=== PATIENT | female | born 1990 | race Caucasian/White ===

== ENCOUNTER 2018-10-01 09:27 | Day surgery (SDC) | payer OTHER ==
[2018-10-01 09:59] VITALS: BP 128/86; TEMP 98.1; BMI 24.0
--- NOTE | 2018-10-01 10:27 | PDOC.LDHP ---
Labor and Delivery H&P Chief complaint: contractions HPI: Patient of Dr Villa CC: Contractions at 37 weeks 1 day Location: Triage Eval time: 1015 HPI: 28 yo with 2 prior SVDs here for vaginal pressure and possible CTX since this AM. No NV, no LOF, good FM, no recent trauma. Otherwise well. Review of Systems: Complete ROS completed and as per HPI Current gestational age (weeks): 37 (1 day) Due date: 10/21/18 Dating criteria: last menstrual period Grav: 3 Para: 2 OB History Details: x 2 Current complications: none Abnormal US findings: No Past Medical History: none Current medications: pre-srinath vitamins Previous surgical history: none Allergies/Adverse Reactions: Allergies Allergy/AdvReac Type Severity Reaction Status Date / Time No Known Allergies Allergy Verified 10/01/18 09:57 Social history: none - Physical Exam Vital signs reviewed and normal: yes (128/86, 110, 98.1, 100%) General: NAD Heart: RRR Lungs: CTAB Abdomen: gravid Extremeties: no edema FHT: category 1 [place] contractions every: irregular - Vaginal Exam cm dilated: 4 Effacement: 75% Station: -1 - Assessment Early labor, latent phase,m early term,,,GBS negative. was 3cm in office last check - Plan Plan: observation in L&D (We will recheck in 2 hours to determine disposition. As still in latent phase and early term, we will follow up in 2 hours with recheck. Admit if cervical change or if CTX increase, or BP becomes an issue.)
--- NOTE | 2018-10-01 13:02 | PDOC.EVN ---
Event Note - Event Note Event Note: jah pollard persistent 4cm, no LOF, no VB Strip reviewed...reactive OK for outpatient care
== END 2018-10-01 13:14 | disposition home or self-care (01) ==
LOC: L&D/OP 09:27
PROVIDERS: ATTEND Student in an Organized Health Care Education/Training Program
DX: O47.1 False labor at or after 37 completed weeks of gestation (principal); Z79.899 Other long term (current) drug therapy; Z3A.37 37 weeks gestation of pregnancy
CPT/HCPCS: 99283

== ENCOUNTER 2018-10-04 12:47 | Day surgery (SDC) | payer OTHER ==
[2018-10-04 13:19] VITALS: BP 120/78; TEMP 97.7; BMI 24.3
--- NOTE | 2018-10-04 13:40 | PDOC.EVN ---
Event Note - Event Note Event Note: OBGYN Faculty Location: L&D H&P Entry 10/04/18 Time: [address] Villa CC: Here for Contractions/Low Back Pain Last seen here 10/01/18 and was 4cm HPI: 28 yo with 2 prior SVDs, at 37 weeks 4 days, with LBP, possible contractions. Aware of Patient's arrival. Dr Acuña ( Resident) consulting sales executive with me and on the way to asssess as first MD responder. Report to follow.
--- NOTE | 2018-10-04 14:38 | PDOC.EVN ---
Event Note - Event Note Event Note: Pt seen and examined, for full H&P see Dr. Wood's report. Briefly, 28 yo @ 37.4 presenting for episodic low back pain, contractions and mucous discharge. Pt reports membranes stripped in office last and had some brown discharge yesterday that has since resolved. Contractions felt since earlier today becoming more frequent. Reports pos movement, denies LOF, continued vaginal discharge. Denies headache, scotoma, NVDC, epigastric/ ruq pain, cp, sob, increased edema. VSS and WNL. FHTs show baseline 150s mod variability pos accels and no decels, contractions q8 min. a/p: 1: early term IUP: obs in l&d, recheck cervix in one hour and dc to home if no change (of note no cervical change since last triage)
--- NOTE | 2018-10-04 15:16 | PDOC.EVN ---
Event Note - Event Note Event Note: L&D: Recheck 1 hour later with pateint comfortable and exam unchanged. OK with recheck in clinic as not changed from last time (10/01). L&D info given. No PIH or pain issues at this time, and no LOF.
== END 2018-10-04 15:45 | disposition home or self-care (01) ==
LOC: L&D/OP 12:47
PROVIDERS: ATTEND Student in an Organized Health Care Education/Training Program
DX: O47.1 False labor at or after 37 completed weeks of gestation (principal); Z3A.37 37 weeks gestation of pregnancy; Z79.899 Other long term (current) drug therapy
CPT/HCPCS: 99283

== ENCOUNTER 2018-10-17 01:05 | Inpatient (IN) | payer OTHER ==
[2018-10-17] MEDS ORDERED: Meperidine HCl/PF 25 MG/ML VIAL IM/IV PRN (01:32)
[2018-10-17] MEDS ORDERED: Ondansetron PF 4 MG/2 ML Vial IVP PRN ×2 (01:32→03:51)
[2018-10-17] MEDS ORDERED: Ibuprofen 800 MG TAB PO PRN (01:32)
[2018-10-17] MEDS ORDERED: Promethazine HCl 25 MG/ML VIAL IM PRN (01:32)
[2018-10-17] MEDS ORDERED: Butorphanol Tartrate 1 MG/ML VIAL SLOW IVP PRN (01:32)
[2018-10-17] MEDS ORDERED: Acetaminophen 500 MG TAB PO PRN (01:32)
[2018-10-17] MEDS ORDERED: HYDROcodone/Acetaminophen 5/325 mg Tablet PO PRN ×4 (01:32→03:51)
[2018-10-17] MEDS ORDERED: NS / Oxytocin 40 units/1000ml 1,000 ML IV PRN (01:32)
[2018-10-17] MEDS ORDERED: Lidocaine 1% (PF) 30 ML VIAL SC PRN (01:32)
--- NOTE | 2018-10-17 01:42 | PDOC.LDHP ---
Labor and Delivery H&P Chief complaint: contractions HPI: 28 yo WF c/o UCs since 9PM. Denies SROM or bleeding. Current gestational age (weeks): 39 Due date: 10/21/18 Dating criteria: last menstrual period Grav: 3 Para: 2 OB History Details: PNC with Dr. Villa w/o complications. Current complications: none Abnormal US findings: No Past Medical History: None Current medications: pre- vitamins, iron Previous surgical history: none Allergies/Adverse Reactions: Allergies Allergy/AdvReac Type Severity Reaction Status Date / Time No Known Allergies Allergy Verified 10/04/18 13:20 Social history: none - Physical Exam Vital signs reviewed and normal: yes General: breathing through contractions Heart: RRR Lungs: CTAB Abdomen: gravid Extremeties: trace edema FHT: variability present [place] contractions every: UCs q 2-3 mins. - Vaginal Exam cm dilated: 7 Effacement: 100% - OB Labs Blood type: unknown RH: unknown Antibody Screen: unknown HIV: unknown RPR: unknown HEPSAg: unknown 1 hour GCT: unknown - Assessment L&D Assessment: term patient in labor - Plan Plan: admit to L&D, informed consent obtained (Dr. Villa notified.)
[2018-10-17] MEDS ORDERED: Lactated Ringer's 1,000 ML IV SCH ×2 (01:45)
[2018-10-17 01:52] LABS: Hemoglobin 11.1 g/dL (12.0-16.0); Mean Corpuscular HGB CONC 33.6 g/dL (32.0-36.0); Mean Corpuscular Hemoglobin 30.2 pg (27.0-31.0); Mean Corpuscular Volume 89.8 fL (78.0-98.0); Mean Platelet Volume 7.4 fL (7.4-10.4); Platelet Count 221 thou/uL (130-400); RBC Distribution Width 12.1 % (11.5-14.5); Red Blood Cell (RBC) Count 3.67 mill/uL (4.20-5.40); White Blood Cell (WBC) Count 15.6 thou/uL (4.8-10.8)
[2018-10-17 01:55] VITALS: BMI 25.7
--- NOTE | 2018-10-17 02:36 | PDOC.EVN ---
Event Note - Event Note Event Note: Asked to AROM by Dr. Villa. AROM clear. SVE 8-9 cm/90/+1, vtx. FHTs stable. UCs q 2-[address] Villa has arrived. Expect .
[2018-10-17 02:44] LABS: HBSAg Index 0.32 S/CO (0-0.99); Hep B Surf Ag Non-Reactive S/CO (NonReactive)
--- NOTE | 2018-10-17 03:00 | PDOC.OPDEL ---
OB Operative/Delivery Note Delivery Dr/Surgeon: Daisy Assist: n/a Pre-Delivery Diagnosis: active labor Procedure/Post Delivery Dx: spontaneous vaginal delivery Weeks gestation: 39 Anesthesia: none - Findings A Sex: female - 1 min: 8 - 5 min: 9 - Additional Findings/Plan Placenta delivered: spontaneous Repaired Obstetrical Laceration: none Estimated blood loss: 15cc qbl Post delivery plan: routine recovery
[2018-10-17] MEDS ORDERED: diphenhydrAMINE 25 MG CAP PO PRN (03:51)
[2018-10-17] MEDS ORDERED: Lanolin Ointment 7 GM TUBE TOP PRN (03:51)
[2018-10-17] MEDS ORDERED: Preparation H Ointment 28 GM TUBE PR PRN (03:51)
[2018-10-17] MEDS ORDERED: Milk Of Magnesia 30 ML UDCUP PO PRN (03:51)
[2018-10-17] MEDS ORDERED: Benzocaine/Menthol 20-0.5% 60 ML CAN TOP PRN (03:51)
[2018-10-17] MEDS ORDERED: NS / Oxytocin 40 units/1000ml 1,000 ML IV SCH (03:51)
[2018-10-17] MEDS ORDERED: Bisacodyl 10 MG SUPP PR PRN (03:51)
[2018-10-17 04:11] LABS: Syphilis Antibody Nonreactive (Nonreactive); Syphilis Antibody Index 0.04 S/CO (<1.00 Non-Reactive)
[2018-10-17] MEDS: Ibuprofen 800 MG TAB PO SCH ×3 (05:41→21:17)
[2018-10-17] MEDS: Ferrous Sulfate 325 MG TAB PO SCH ×2 (07:51→16:19)
[2018-10-17] MEDS ORDERED: Adacel (T-DAP) 0.5 ML SYRINGE IM ONE (09:00)
[2018-10-17] MEDS: Prenatal Vitamin 1 TAB PO SCH (09:33)
[2018-10-17] MEDS: Docusate Calcium (SURFAK) 240 MG CAP PO SCH ×2 (09:34→21:17)
[2018-10-17] MEDS ORDERED: Sodium Chloride 0.9% 10 ML ONE (12:47)
--- NOTE | 2018-10-17 18:21 | PDOC.PP ---
Post Progress Note Post Day #: 0 PO intake tolerated: yes Flatus: yes Ambulation: yes Vital Signs (12 hours) Temp Pulse Resp BP 10/17/18 11:54 98.2 F 84 20 108/66 Weight Weight 155 lb - Physical Examination General: NAD Cardiovascular: RRR Respiratory: non-labored breathing Abdominal: no distention, appropriately TTP Fundus firm & at: umb Skin: no rash Neurological: no gross focal deficits Psychiatric: normal affect Result Diagrams: 10/17/18 01:43 Additional Labs: Post Labs Blood Type A POSITIVE 10/17/18 01:43 Hep Bs Antigen Non-Reactive S/CO (NonReactive) 10/17/18 01:43 (1) Spontaneous onset of labor Code(s): [id number] - Status: Acute - Assessment/Plan PPD0 s/p TSVD VSSAF Doing well lochia appropriate Rh pos, RImm Cont PP care, home tomorrow
[2018-10-18] MEDS: Ibuprofen 800 MG TAB PO SCH ×2 (05:44→14:14)
--- NOTE | 2018-10-18 07:09 | PDOC.PP ---
Post Progress Note Post Day #: 2 Subjective: Doing well, no concerns, normal lochia, breast feeding well PO intake tolerated: yes Flatus: yes Ambulation: yes Vital Signs (12 hours) Temp Pulse Resp BP BP Pulse Ox 10/18/18 01:30 97.5 F L 72 18 112/66 10/17/18 20:00 97.6 F 72 16 104/55 L 98 Weight Weight 155 lb - Physical Examination General: NAD Respiratory: non-labored breathing Fundus firm & at: below umb Neurological: no gross focal deficits Psychiatric: A&Ox3, normal affect Result Diagrams: 10/17/18 01:43 Additional Labs: Post Labs Blood Type A POSITIVE 10/17/18 01:43 Hep Bs Antigen Non-Reactive S/CO (NonReactive) 10/17/18 01:43 (1) Vaginal delivery Code(s): O80 - ENCOUNTER FOR FULL-TERM UNCOMPLICATED DELIVERY Status: Acute - Assessment/Plan PPD2, doing well, no concerns, plan for DC today.
[2018-10-18] MEDS: Docusate Calcium (SURFAK) 240 MG CAP PO SCH (08:39)
[2018-10-18] MEDS: Prenatal Vitamin 1 TAB PO SCH (08:39)
[2018-10-18] MEDS: Ferrous Sulfate 325 MG TAB PO SCH (08:57)
[2018-10-18 11:45] VITALS: BP 117/69; TEMP 98.4
== END 2018-10-18 15:30 | disposition home or self-care (01) | DRG 807 ==
LOC: L&D/OP 01:05 → L&D 02:01 → 3SW 05:21
PROVIDERS: ADMIT Student in an Organized Health Care Education/Training Program; ATTEND Student in an Organized Health Care Education/Training Program
PROC: 10E0XZZ Delivery of Products of Conception, External Approach (ICD-10-PCS; principal; 2018-10-17)
PROC: 10907ZC Drainage of Amniotic Fluid, Therapeutic from Products of Conception, Via Natural or Artificial Opening (ICD-10-PCS; 2018-10-17)
DX: O80 Encounter for full-term uncomplicated delivery (principal); Z37.0 Single live birth; Z3A.39 39 weeks gestation of pregnancy
CPT/HCPCS: 36416; 85027; 86780; 86850; 86900; 86901; 87340; 99285; J2001

== ENCOUNTER 2020-10-07 12:03 | Emergency (ER) | payer OTHER, SELFPAY ==
[2020-10-07 13:30] LABS: #Basophils 0.1 thou/uL (0.0-0.2); #Eosinphils 0.1 thou/uL (0.0-0.7); #Lymphocytes 1.6 thou/uL (1.20-3.40); #Monocytes 0.4 thou/uL (0.11-0.59); #Neutrophils 6.9 thou/uL (1.40-6.50); %Basophils 0.6 % (0.0-1.0); %Eosinophils 0.7 % (0.0-10.0); %Lymphocytes 17.7 % (21.0-51.0); %Monocytes 4.4 % (0.0-10.0); %Neutrophils 76.6 % (42.0-75.0); Hemoglobin 11.3 g/dL (12.0-16.0); Mean Corpuscular HGB CONC 32.9 g/dL (32.0-36.0); Mean Corpuscular Hemoglobin 29.4 pg (27.0-31.0); Mean Corpuscular Volume 89.3 fL (78.0-98.0); Mean Platelet Volume 7.7 fL (7.4-10.4); Platelet Count 178 thou/uL (130-400); RBC Distribution Width 11.7 % (11.5-14.5); Red Blood Cell (RBC) Count 3.83 mill/uL (4.20-5.40)
[2020-10-07 13:58] LABS: ALT (SGPT) 8 U/L (8-55); AST (SGOT) 11 U/L (5-34); Albumin 3.8 g/dL (3.5-5.0); Alkaline Phosphatase 46 U/L (40-110); Anion Gap 11 mmol/L (10-20); BUN (Urea Nitrogen) 13 mg/dL (7.0-18.7); Bilirubin, Total 0.5 mg/dL (0.2-1.2); Calc. Creatinine Clearance 0 mL/min (70-130); Calcium 8.4 mg/dL (7.8-10.44); Carbon Dioxide 25 mmol/L (22-29); Chloride 104 mmol/L (98-107); Globulin 2.8 g/dL (2.4-3.5); Glucose 141 mg/dL (70-105); Potassium 4.3 mmol/L (3.5-5.1); Protein, Total 6.6 g/dL (6.0-8.3); Sodium 136 mmol/L (136-145)
--- NOTE | 2020-10-26 13:15 | EKG ---
Test Reason : Blood Pressure : / mmHG Vent. Rate : 084 BPM Atrial Rate : 084 BPM P-R Int : 146 ms QRS Dur : 070 ms QT Int : 354 ms P-R-T Axes : 065 086 069 degrees QTc Int : 418 ms Age and gender specific ECG analysis Normal sinus rhythm Normal ECG Baseline Artifact Present Confirmed by KAREN FIELDS ([id number]), associate entertainment editor GUSTAVO WEBSTER ([id number]) on 10/26/2020 1:15:09 PM Referred By: Confirmed By:KAREN Galicia
== END 2020-10-07 14:28 | disposition home or self-care (01) ==
LOC: ERS 12:03
DX: R55 Syncope and collapse (principal)
CPT/HCPCS: 80053; 85025; 93005